=== PATIENT | female | born 1935 | race Caucasian/White ===

== ENCOUNTER → 2017-05-01 | Outpatient (CLI) | payer MEDICARE, BC ==
[~2017-05-01] MED LIST: CALCIUM 600 MG1 EAC4; GABAPENTIN600 MG; LEVOTHYROXINE; TRAMADOL HCL50 M1 PO; Z.0.CENTRUM SILVER1 PO; Z.0.MOBIC15 MG PO; [UNRECOGNIZED DRUG - CODE] PO; [UNRECOGNIZED DRUG - OTHER] PO
--- NOTE | 2017-05-01 11:12 | Diagnostic Imaging Report ---
PROCEDURE:BONE DXA DUAL ENERGY INDICATION: Post menopausal osteoporosis screening The patient history questionnaire was completed and is available on PACS. COMPARISON:None. FINDINGS: Evaluation of the left hip and lumbar spine was performed utilizing DEXA Hologic bone densitometer. The study is technically adequate. The patient's fracture risk is compared to an age-matched control. The patient denies prior surgery/fracture of the spine, hips or forearm. Left femoral neck bone mineral density: 0.761 g/cm2, T-score is -0.8, Z-score is 1.6. Left total hip bone mineral density: 0.744 g/cm2, T-score is -1.6, Z-score is 0.5. Lumbar spine total bone mineral density: 1.257 g/cm2, T-score is 1.9, Z-score is 4.7. IMPRESSION: 1. Bone mineralization by WHO Classification is osteopenia, based on measurements obtained of the left hip. The fracture risk isn't increased. 2. Measured bone mineral density of the lumbar spine is probably artifactually increased due to degenerative osteophyte formation. Dictated by: Cedric López M.D. on 05/01/2017 at 11:11 Electronically approved by: Cedric López M.D. on 05/01/2017 at 11:11
== END ==
LOC: DX 09:38
PROVIDERS: ATTEND Family Medicine
DX: M81.0 Age-related osteoporosis without current pathological fracture (principal)
CPT/HCPCS: 77080

== ENCOUNTER 2018-04-01 23:47 | Inpatient (IN) | payer MEDICARE, BC ==
[~2018-04-01] VITALS: Ht 172.7 cm; Wt 65.8 kg
--- OUTSIDE RECORDS SUMMARY | 2018-04-01 23:51 | XMS REPORT ---
Author Author [facility] Address Unknown Phone Unavailable Care Team Providers Care Group Exercise Manager Name Role Phone SOHA GARCIA Unavailable Unavailable Problems This patient has no known problems. Allergies, Adverse Reactions, Alerts This patient has no known allergies or adverse reactions. Medications This patient has no known medications. Results Test Description Test Time Test Comments Text Results Atomic Results Result Comments BONE DXA DUAL ENERGY [place] [id number] Patient Name: JI ALLEN MR #: [id number] : 1935 Age/Sex: 81/F Req #: [id number] [facility] Physician: Ordered by: SOHA GARCIA MD Report #: [id number] Location: DX Room/Bed: Procedure: [id number] DX/BONE DXA DUAL ENERGY Exam Date: Exam Time: REPORT STATUS: Signed PROCEDURE: BONE DXA DUAL ENERGY INDICATION: Post menopausal osteoporosis screening The patient history questionnaire was completed and is available on PACS. COMPARISON: None. FINDINGS: Evaluation of the left hip and lumbar spine was performed utilizing DEXA Hologic bone densitometer. The study is technically adequate. The patient's fracture risk is compared to an age- matched control. The patient denies prior surgery/fracture of the spine, hips or forearm. Left femoral neck bone mineral density: 0.761 g/cm2, T-score is -0.8, Z-score is 1.6. Left total hip bone mineral density: 0.744 g/cm2, T-score is -1.6, Z-score is 0.5. Lumbar spine total bone mineral density: 1.257 g/cm2, T-score is 1.9, Z-score is 4.7. IMPRESSION: 1. Bone mineralization by WHO Classification is osteopenia, based on measurements obtained of the left hip. The fracture risk isn't increased. 2. Measured bone mineral density of the lumbar spine is probably artifactually increased due to degenerative osteophyte formation. Dictated by: Delfino Johnson M.D. on 05/01/2017 at 11:11 Electronically approved by: Delfino Johnson M.D. on 05/01/2017 at 11:11 Dictated By: DELFINO JOHNSON MD 1111 Transcribed By: RAFAELA on 05/01/17 1111 COPY TO: SOHA GARCIA MD
[2018-04-01] MEDS ORDERED: ONDANSETRON HCL INJ 2MG/ML 2ML 2 MG/ML VIAL IV STA (23:56)
[2018-04-01] MEDS ORDERED: HYDROMORPHONE 2MG/ML 2 MG/ML ML IV STA (23:56)
[2018-04-02 00:51] LABS: ALBUMIN 3.3 g/dL (3.5-5.0); ANION GAP 14.9 mmol/L (8-16); CALCIUM 9.1 mg/dL (8.4-10.2); CREATININE, SERUM 1.05 mg/dL (0.57-1.11); POTASSIUM 3.9 mmol/L (3.5-5.1)
[2018-04-02 00:52] LABS: BASOPHILS # (AUTO) 0.1 (0.0-0.1); BASOPHILS % 0.8 % (0.0-1.0); EOSINOPHILS # (AUTO) 0.6 (0.0-0.4); EOSINOPHILS % 8.5 % (0.0-6.0); HEMATOCRIT 33.4 % (34.2-44.1); LYMPHOCYTES # (AUTO) 1.8 (1.0-3.2); LYMPHOCYTES % 27.8 % (18.0-39.1); MEAN CORPUSCULAR HEMOGLOBIN 32.8 pg (28-32); MEAN CORPUSCULAR HGB CONC 35.9 g/dL (31-35); MEAN CORPUSCULAR VOLUME 91.3 fL (81-99); MONOCYTES # (AUTO) 0.6 (0.2-0.8); MONOCYTES % 9.4 % (4.4-11.3); NEUTROPHILS # (AUTO) 3.5 (2.1-6.9); PLATELET COUNT 242 x10e3/uL (140-360); RED BLOOD COUNT 3.66 x10e6/uL (3.6-5.1); RED CELL DISTRIBUTION WIDTH 13.9 % (11.7-14.4)
[2018-04-02 01:18] LABS: INR 1.01; PROTHROMBIN TIME 14.2 seconds (11.9-14.5)
[2018-04-02 01:19] LABS: PARTIAL THROMBOPLASTIN TIME 33.7 seconds (23.8-35.5)
--- NOTE | 2018-04-02 01:30 | Diagnostic Imaging Report ---
EXAM: HIP LEFT 2-3 VW (+/- PELVIS) INDICATION: Fall, left hip pain COMPARISON: None FINDINGS: BONES: Acute fracture of the left proximal femoral neck with shortening. JOINTS: No dislocation. Degenerative changes of the bilateral hips and pubic symphysis and sacroiliac joints and lower lumbar spine. SOFT TISSUES: Normal IMPRESSION: Acute fracture of the left proximal femoral neck. Signed by: Dr. Jolene Mahajan M.D. on 04/02/2018 1:26 AM
--- NOTE | 2018-04-02 01:31 | Diagnostic Imaging Report ---
EXAM: CHEST SINGLE (PORTABLE), AP 1 view INDICATION: Fall, left hip pain COMPARISON: None FINDINGS: LINES/TUBES: None LUNGS: No consolidations or edema. PLEURA: No effusions or pneumothorax. HEART AND MEDIASTINUM: The heart is within normal size limits. Prominence of the right paratracheal stripe is likely secondary to rotation. BONES AND SOFT TISSUES: No acute findings. IMPRESSION: No acute thoracic abnormality. Signed by: Dr. Jolene Mahajan M.D. on 04/02/2018 1:27 AM
[2018-04-02] MEDS ORDERED: HYDROMORPHONE 2MG/ML 2 MG/ML ML IV STA (01:35)
[2018-04-02] MEDS ORDERED: SODIUM CHLORIDE 0.9% 1000ML 1,000 ML IV SCH (01:55)
[2018-04-02] MEDS ORDERED: HYDRALAZINE HCL 20 MG/ML VIAL IV PRN (02:00)
--- NOTE | 2018-04-02 02:36 | Diagnostic Imaging Report ---
Exam: Left femur one view Indication: Fall, left hip pain Comparison: Pelvic and left hip x-rays April 02, 2018 Impression: Acute fracture of the left proximal femoral neck with shortening. No additional femoral fractures. No dislocation. Signed by: Dr. Jolene Mahajan M.D. on 04/02/2018 2:33 AM
[2018-04-02 03:26] LABS: CLARITY,URINE CLEAR (CLEAR); COLOR,URINE YELLOW (YELLOW); LEUKOCYTE ESTERASE ,URINE NEGATIVE (NEGATIVE); NITRITE,URINE NEGATIVE (NEGATIVE)
[2018-04-02 03:27] LABS: BACTERIA,URINE RARE /HPF; BILIRUBIN,URINE NEGATIVE (NEGATIVE); EPITHELIAL CELLS,URINE FEW /LPF; KETONES,URINE TRACE (NEGATIVE); MUCUS,URINE FEW (RARE); PROTEIN,URINE DIPSTICK NEGATIVE (NEGATIVE); RBC,URINE 0-5 /HPF (0-5); URINE UROBILINOGEN 0.2 mg/dL (0.2 - 1); WBC,URINE (MAN) 0-5 /HPF (0-5)
--- NOTE | 2018-04-02 04:00 | NUR ---
THIS NURSE ATTEMPTED TO PLACE PATIENT ON HOSPITAL BED, FAMILY IN ROOM SAID THE PATIENT IS RESTING PEACFULLY AND THEY WILL LET US KNOW WHEN THEY ARE READY. EXPLAINED THE RISK OF SKIN BREAKDOWN. PATIENT WAS ASKED IF SHE WANTED TO STAY IN ER BED, PATIENT STATED SHE DID NOT WANT TO BE MOVED TO HOSPITAL BED UNTIL LATER.
[2018-04-02] MEDS: HYDROMORPHONE 2MG/ML 2 MG/ML ML IV PRN ×4 (06:30→19:50)
[2018-04-02] MEDS ORDERED: SYNTHROID50 MCG PO (06:35)
--- NOTE | 2018-04-02 07:38 | NUR ---
UNABLE TO INITIATE SCD/VTE PROPHYLAXIS, NO MACHINE AVAILABLE
--- NOTE | 2018-04-02 08:36 | NUR ---
BLE KNEE HIGH SCD'S INITIATED
--- NOTE | 2018-04-02 08:40 | NUR ---
PT REPOSITIONED FOR COMFORT, PROVIDED PILLOW TO WEDGE LEFT HIP OFF BED.
--- NOTE | 2018-04-02 09:56 | NUR ---
PT TRANSFERRED FROM STRETCHER TO HOSPITAL BED. PT TOLERATED WITHOUT DIFFICULTY.
[2018-04-02] MEDS ORDERED: ENOXAPARIN 30 MG/0.3 ML SYR SC ONE (10:30)
--- NOTE | 2018-04-02 10:32 | History and Physical ---
CHIEF COMPLAINT: "I fell down." HISTORY OF PRESENT ILLNESS: This is an 82-year-old white woman who presents to [facility] with complaints of intense left hip pain. The patient states she suffered a mechanical fall last night at approximately 11 p.m. when she went outside to see the [employer]. The patient denies any syncopal or presyncopal symptoms prior to falling. The patient states she has intense pain of the left hip in the left hip area. In the emergency room, the patient had a left femur x-ray performed that revealed an acute fracture of the left proximal femoral neck with shortening. The patient's complete blood count and comprehensive metabolic profile were unremarkable. The patient was admitted for further evaluation and treatment. REVIEW OF SYSTEMS GENERAL: Weight has been stable. No fever or chills. HEENT: No headaches. No visual changes. CARDIOVASCULAR/RESPIRATORY: The patient was recently diagnosed with pneumonia, but her cough and congestion has improved significantly. The patient denies any chest pain or tiredness. GI: No nausea, vomiting, constipation. : No dysuria. No hematuria. No constipation. NEUROMUSCULAR: Complains of left hip pain. PAST MEDICAL HISTORY 1. Hypothyroidism. 2. Osteoporosis. 3. Hypertensive heart disease. 4. Stage 1 chronic kidney disease. 5. Generalized osteoarthritis. SURGICAL HISTORY 1. Appendectomy. 2. Tonsillectomy. 3. Right ankle surgery. 4. Right knee arthroscopy. 5. Cataract surgery. 6. Left heart catheterization, but no percutaneous coronary intervention performed. FAMILY HISTORY: Both parents have hypertension and mother had coronary artery bypass grafting. ALLERGIES: NO KNOWN DRUG ALLERGIES. SOCIAL HISTORY: The woman is and lives with her . She was exposed to second-hand tobacco smoke from her up until 1979. She is retired. She denies any alcohol use. MEDICATIONS 1. Meloxicam 15 mg daily. 2. Levothyroxine 50 mcg daily. 3. Tramadol 50 mg q.i.d. p.r.n. pain. 4. Alendronate 70 mg daily. 5. Gabapentin 600 mg daily. 6. Losartan 40 mg daily. 7. Vitamin D3 2000 units daily. 8. Calcium with vitamin D t.i.d. 9. Multivitamin 1 daily. PHYSICAL EXAMINATION GENERAL: She is awake, alert, fully awake, and pleasant on exam. VITALS: Height is 5 feet 8 inches, weight is 130 pounds, BMI 19, blood pressure is 128/62, heart rate is 100, respiratory rate is 18, oxygen saturation 98% on room air, temp 97.8. INTEGUMENT: Skin is warm and dry. No pallor, conjunctivitis or diaphoresis. HEENT: Anicteric. Moist mucous membranes. NECK: Supple. CARDIOVASCULAR: Tachycardic rate with regular rhythm. The patient has an S3 and S4 gallops. LUNGS: She has coarse breath sounds bilaterally, but no rales, rhonchi or wheezes appreciated. EXTREMITIES: The patient's left lower extremity is shorter than the right and it is externally rotated. NEUROLOGIC: Intact. IMPRESSION 1. Left proximal femoral neck fracture secondary to mechanical fall. 2. Hypertensive heart disease. 3. Stage 1 chronic kidney disease. 4. Osteoporosis. 5. Generalized osteoarthritis. PLAN 1. Will order enoxaparin to prevent deep venous thrombosis. 2. Regular diet. 3. N.p.o. after midnight. 4. I spoke with orthopedic surgery, and she will tentatively undergo left hip surgery tomorrow on Tuesday, April 03, 2018. 5. Pain control. 6. Renew home medications. I spent an hour in the care of this patient. Job#: [id number] SUSI BHAGAT
[2018-04-02] MEDS: GABAPENTIN 300 MG CAP PO SCH ×3 (10:48→21:15)
--- NOTE | 2018-04-02 11:50 | NUR ---
DR. BARTLETT AT BEDSIDE
[2018-04-02] MEDS: ONDANSETRON HCL INJ 2MG/ML 2ML 2 MG/ML VIAL IV PRN (12:25)
--- NOTE | 2018-04-02 13:02 | Consultation ---
DATE OF CONSULTATION: April 02, 2018 CARDIOLOGY CONSULTATION ATTENDING PHYSICIAN: Dr. Mayo. Thank you so much for asking me to see this nice lady again in consultation. Ms. Arevalo is a charming 82-year-old woman seen in my office earlier this month, who presented to the emergency room overnight after falling down on her patio and fracturing her left hip. HISTORY OF PRESENT ILLNESS: The patient reports she went out to see the [place] and was having trouble seeing it but slipped down on a rubber mat and fractured her left hip. She denies any palpitations or any syncope. PAST MEDICAL HISTORY: Significant for hypertension. She had a cardiac catheterization in 2009, found to have only minimal coronary disease. She has had previous left trigeminal neuralgia. SURGICAL HISTORY: Remote tonsillectomy and appendectomy. HOME MEDICATIONS: Have been Synthroid 50 mcg daily, calcium, vitamin D, tramadol, meloxicam, gabapentin 600 mg t.i.d., and Micardis 40 mg daily. PERSONAL AND SOCIAL HISTORY: She does not smoke nor drink. PHYSICAL EXAMINATION GENERAL: At this time shows a pleasant, elderly woman, alert, responsive, oriented, normotensive. HEAD, EYES, EARS, NOSE AND THROAT: Unremarkable. NECK: No jugular venous distention. THORAX: Heart sounds S1 and S2 are equal, no murmurs. LUNGS: Clear. ABDOMEN: Scaphoid. Normal bowel sounds. EXTREMITIES: Have no cyanosis, clubbing or edema. EKG shows sinus tachycardia. INITIAL LABORATORY STUDIES: Were unrevealing with a creatinine of 1.0. INR 1.0. ASSESSMENTS 1. Left femoral neck fracture. 2. Hypertension, controlled. 3. No significant coronary disease. PLAN: I believe she is a standard risk for a hip repair for an 82-year-old. Will continue home medications and follow with you. Thank you for asking me to see her in consultation. Job#: [id number] EV cc:MD DR. HENRY ARAUZ
--- NOTE | 2018-04-02 14:36 | NUR ---
PT TO THE FLOOR FROM ER. PT'S FAMILY AT BEDSIDE.
[2018-04-02 15:00] VITALS: BP 132/66
--- NOTE | 2018-04-02 16:04 | NUR ---
CONSULTATION - ORTHOPEDICS Abigail is a 82 year old community ambulating female without assistive device who presented to the ED after a mechanical fall with complaint of left hip pain and an inability to ambulate. Beside her general soreness, she denies pain in any other extremity and denies numbness, paresthesias or loss of distal motor function. Pain mainly localized to left hip. PMdHx: Hypothyroidism, Osteoporosis, Hypertensive heart disease, Stage 1 chronic kidney disease, Generalized osteoarthritis. SurgHx: Appendectomy, Tonsillectomy, Right ankle surgery, Right knee arthroscopy, Cataract surgery, Left heart catheterization FamHx: Non-contributory Allergies: NKDA. SocHx: Retired, Denies Tobacco, Alcohol and Drug Use Medications: See Med Reconciliation VS: T 97.9, HR 98, RR 16, BP 136/75, O2 Sat 98% (2.0L) Alert, Awake & Oriented, NAD Bilateral Upper Extremity No open lesions or sores, no gross deformity + AROM of digits, wrist, elbow, shoulder Motor: + AIN, PIN, Radial, Median, Ulnar Sensation grossly intact Pulses + Radial, + capillary refill Compartments soft Lower Extremity Right Lower Extremity: No pain with log roll, heal strike, no gross deformity Left Lower Extremity: Shortened, flexed, externally rotated Motor: + EHL, FHL, TA, G/S Sensation grossly intact Pulses + DP, Post tib Compartments soft Negative calf tenderness Xrays demonstrate displaced left femoral neck fracture 82 year old female with displaced left femoral neck fracture Plan for OR in am for left hip hemiarthroplasty Analgesics PRN DVT Prophylaxis Bedrest NPO except meds after midnight Hold anticoagulation after midnight IVF while NPO Medical and Cardiology notes appreciated. DO [facility]
[2018-04-02 16:25] VITALS: BP 113/57
[2018-04-02] MEDS: LACTATED RINGER'S 1,000 ML IV SCH (17:12)
[2018-04-02 20:00] VITALS: BP 103/58
[2018-04-03] VITALS (7 sets, daily range): BP systolic 96–138; BP diastolic 55–74
[2018-04-03] MEDS: HYDROMORPHONE 2MG/ML 2 MG/ML ML IV PRN ×2 (00:07→05:20)
--- NOTE | 2018-04-03 00:13 | NUR ---
RECHECKED TEMP NOW READING 97.7
--- NOTE | 2018-04-03 00:15 | NUR ---
KYLIE CHAN REGARDING PT TEMP READING 101.0. AWAITING CALL BACK. Addendum: 04/03/18 at 0528 by David Forte RN COLD COMPRESS APPLIED TO FOREHEAD.
--- NOTE | 2018-04-03 00:38 | NUR ---
RE-PAGED DR. CHAN AT THIS TIME. AWAITING CALL BACK.
[2018-04-03] MEDS: LEVOTHYROXINE SODIUM 50 MCG TAB PO SCH (04:52)
--- NOTE | 2018-04-03 05:11 | NUR ---
SPOKE TO DR. CHAN AT THIS TIME. NEW ORDER RCV FOR PRN IV TYLENOL.
[2018-04-03] MEDS: LACTATED RINGER'S 1,000 ML IV SCH (06:00)
[2018-04-03] MEDS: ACETAMINOPHEN 1000 MG/100 ML IV PRN (06:00)
[2018-04-03 06:16] LABS: BASOPHILS # (AUTO) 0.1 (0.0-0.1); BASOPHILS % 0.7 % (0.0-1.0); EOSINOPHILS # (AUTO) 0.7 (0.0-0.4); EOSINOPHILS % 9.1 % (0.0-6.0); HEMATOCRIT 33.7 % (34.2-44.1); HEMOGLOBIN 11.1 g/dL (12.0-16.0); LYMPHOCYTES # (AUTO) 1.3 (1.0-3.2); LYMPHOCYTES % 16.1 % (18.0-39.1); MEAN CORPUSCULAR HEMOGLOBIN 30.2 pg (28-32); MEAN CORPUSCULAR HGB CONC 32.9 g/dL (31-35); MEAN CORPUSCULAR VOLUME 91.6 fL (81-99); MONOCYTES # (AUTO) 0.8 (0.2-0.8); MONOCYTES % 9.2 % (4.4-11.3); NEUTROPHILS # (AUTO) 5.2 (2.1-6.9); NEUTROPHILS % 64.4 % (38.7-80.0); PLATELET COUNT 219 x10e3/uL (140-360); RED BLOOD COUNT 3.68 x10e6/uL (3.6-5.1); RED CELL DISTRIBUTION WIDTH 14.1 % (11.7-14.4)
[2018-04-03 06:32] LABS: ALANINE AMINOTRANSFERASE 13 IU/L (0-55); ALBUMIN 2.5 g/dL (3.5-5.0); ALBUMIN/GLOBULIN RATIO 0.9 (0.8-2.0); ALKALINE PHOSPHATASE 43 IU/L (40-150); BLOOD UREA NITROGEN 13 mg/dL (7-26); BUN/CREATININE RATIO 17 (6-25); CALCIUM 8.3 mg/dL (8.4-10.2); CARBON DIOXIDE 28 mmol/L (22-29); CHLORIDE 100 mmol/L (98-107); CREATININE, SERUM 0.78 mg/dL (0.57-1.11); EST GLOMERULAR FILTRATION RATE > 60 ML/MIN (60-); GLUCOSE 107 mg/dL (74-118); SODIUM 134 mmol/L (136-145)
[2018-04-03] MEDS ORDERED: VANCOMYCIN HCL 1 GM VIAL ONE (06:43)
[2018-04-03] MEDS ORDERED: BACITRACIN 50,000 UNIT VIAL ONE (06:44)
[2018-04-03] MEDS ORDERED: TRANEXAMIC ACID 1,000 MG/10 ML ML ONE (06:44)
--- NOTE | 2018-04-03 07:00 | NUR ---
SHIFT REPORT RECEIVED FROM APPLICATIONS ENGINEERING MANAGER RN WHILE ROUNDING. PT DENIES NEEDS AT THIS TIME.
--- NOTE | 2018-04-03 07:14 | NUR ---
Patient going to surgery at this time. Daughter at bedside
--- NOTE | 2018-04-03 07:15 | NUR ---
PT OFF THE FLOOR TO OR. RN STATED CONSENT WOULD BE DONE IN OR. WHEN OR CALLED TO CHECK ON PT'S READINESS, THIS NURSE LET THEM KNOW PT WAS READY WITH THE EXCEPTION OF CONSENT. THERE WAS NO ORDER. THEY STATED THAT WOULD BE CALLED FOR ORDER.
[2018-04-03] MEDS ORDERED: ROPIVACAINE 246.25 MG, EPINEPHRINE HCL 1:1000 1ML 0.5 MG, CLONIDINE HCL 0.08 MG, KETORO... INJ ONE ×5 (07:30)
[2018-04-03] MEDS: GABAPENTIN 300 MG CAP PO SCH ×3 (08:12→21:55)
[2018-04-03] MEDS: TELMISARTAN 40 MG TAB PO SCH (08:12)
[2018-04-03] MEDS: CHOLECALCIFEROL 1,000 UNIT TAB PO SCH (08:12)
--- NOTE | 2018-04-03 09:59 | NUR ---
OPERATIVE NOTE - ORTHOPEDICS PREOPERATIVE DIAGNOSES: Left Displaced Femoral Neck Fracture POSTOPERATIVE DIAGNOSES: Left Displaced Femoral Neck Fracture and Complete Abductor Tendon Tear PROCEDURE: LeftHip Hemiarthroplasty and Abductor Tendon Repair SURGEON: Susan Edmondson DO ARABIC TEACHER: Elie Fuentes ANESTHESIA: General. EBL: 100cc ANESTHESIA: General COMPLICATIONS: None IMPLANTS: [place] Accolade II 132 Neck Angle Hip Stem Size #4, 35mm Neck length, 105 mm Stem Length & V40 Taper Betty UHR [place] Head Bipolar Component OD 47 mm, ID 28 mm Styker LFIT V40 Femoral Head OD 28 mm, Offset 0 mm PROCEDURE:The patient was bought to the operating room and placedunder general anesthesia and Ancef antibiotics and TXA were provided. After induction of anesthesia, the patient was turned on therightside and secured in the hip table with all bony prominences well padded. The leg was prepped and draped in standard sterile fashion. A timeout was performed confirming patient and laterality. An incision was made, centered over theposterior portion ofgreater trochanter. Dissection was sharply carried down through the subcutaneous tissues with controlled hemostasis. The gluteus maximusand fascia latawas incised and split proximally and distally. There was a significant bursitis with a large expression of bursal fluid. Under the bursa there was a large complete hip abductor tear with significant scarring of the lateral and posterior trochanteric structures. The piriformis and external rotators were identified. These were removed from their insertions on the greater trochanterand tagged with stitchesas a sleeve. A T-capsulotomy was performed for exposure to the fractured femoral neck and head. The distal portion of the capsule and external rotators were reflected to protect the sciatic nerve. A femoral neck cut was made above the lesser trochanter and the femoral neck and head were removed. The femoral head was measured to be a 50 mm.All bony remnants within the acetabulum and parts of the capsule were removed and focus was on preparation of the femur. The femur was then flexed and internally rotated. The extra trochanteric bone was removed, as was any leftover lateral soft tissue at the piriformis insertion. An intramedullary hole was drilled into the femur to define the canal. Reaming was performed until the appropriate size was reached. The broaches were then used to prepare the femur with the appropriate amount of version. Once the appropriate size broach was reached, it was used as a trial with head and neck placement. Hip [id number] was checked in all planes, including flexion-internal rotation, the position of sleep, and extension-external rotation. The hip was found to have excellent stability with the final chosen head-neck combination. Intraoperative x-rays were obtained to ensure adequate canal filling and leg lengths. Xray were interpreted and showed good alignment, length and size. Leg length measurements were taken and found to be within acceptable range, given the necessity for stability. The canal was thoroughly washed and a Betty Accolade II #4 size neck length 35mm, stem lenght 105mm V40 Taper with 132 degree degreestem was opened and impactedin the appropriate version. The UHR [place] Head Bipolar Component 47 mm 28 mm with the Styker LFit V40 Femoral Head with 28 mm and 0 mm Offset was used.Range of motion and stability were once again checked and found to be excellent. Adequate hemostasis was obtained. Vigorous power irrigation was used to remove all debris from the joint prior to final reduction. The arthrotomy and rotators were closed using Ethibond through drill holes in the bone, recreating the posterior hip structural anatomy. The gluteus medius and minimus were repaired by lightly decorticating lateral portion of the greater trochanter and placing fiber wire in a margin convergence pattern and then placing additional stitches through a 4.75 Arthrex Swivel lock. The gluteus nohemy was repaired using Vicryl. The subcutaneous tissues were closed after further irrigation with 2-0 Vicryl and Monocryl sutures.An analgesic cocktail was injected into the area for pain control.The skincovered with steristrips and an Aquacel dressing.Final Xrays were obtained in the operating room and interpreted by me demonstrating adequate size, length and position of the final implant. The patient was transferred to the recovery room in stable condition, having tolerated the procedure well. DO [facility]
--- NOTE | 2018-04-03 10:32 | Diagnostic Imaging Report ---
EXAM: HIP LEFT ONE VIEW / OR INDICATION: Intraoperative radiograph for hardware placement. COMPARISON: Left hip radiographs 04/01/2018. FINDINGS: Intraoperative portable radiograph, which limits evaluation. There has been interval resection of the proximal left femur with placement of a left femoral stem prosthesis. The femoral head component has not yet been placed. Hardware appears intact with unremarkable alignment. There is overlying subcutaneous gas consistent with recent surgery. Overlying lines. The right hip is partially obscured and demonstrates degenerative changes. There is diffuse osteopenia. Overlying wires and Ascencio catheter are present. IMPRESSION: Post surgical changes of the left femur as above. Signed by: Dr. Chino Gonzalez MD on 04/03/2018 10:28 AM
--- NOTE | 2018-04-03 10:33 | Diagnostic Imaging Report ---
EXAM: HIP LEFT ONE VIEW / OR INDICATION: X-ray for surgical evaluation status post left hip arthroplasty. COMPARISON: Intraoperative left hip radiographs 04/03/2018. Left hip presurgical radiographs 04/01/2018. FINDINGS: Intraoperative portable radiograph. Status post left total hip arthroplasty with intact hardware and unremarkable alignment. No evidence of interval fracture. There is overlying subcutaneous gas consistent with recent surgery. Mild degenerative changes of the right hip. Diffuse osteopenia. Bowel gas partially obscures visualization of the sacrum and left hemipelvis. IMPRESSION: Post surgical changes status post left total hip arthroplasty as above. Signed by: Dr. Chino Gonzalez MD on 04/03/2018 10:30 AM
--- NOTE | 2018-04-03 10:45 | NUR ---
PT BACK TO THE FLOOR FROM PACU. FAMILY AT BEDSIDE. PT DENIES NEEDS AT THIS TIME.
[2018-04-03 10:48] LABS: BASOPHILS # (AUTO) 0.1 (0.0-0.1); BASOPHILS % 0.4 % (0.0-1.0); EOSINOPHILS # (AUTO) 0.3 (0.0-0.4); EOSINOPHILS % 2.2 % (0.0-6.0); HEMATOCRIT 35.6 % (34.2-44.1); HEMOGLOBIN 11.8 g/dL (12.0-16.0); LYMPHOCYTES # (AUTO) 1.7 (1.0-3.2); LYMPHOCYTES % 12.9 % (18.0-39.1); MEAN CORPUSCULAR HEMOGLOBIN 30.8 pg (28-32); MEAN CORPUSCULAR HGB CONC 33.1 g/dL (31-35); MONOCYTES # (AUTO) 0.5 (0.2-0.8); NEUTROPHILS # (AUTO) 10.5 (2.1-6.9); NEUTROPHILS % 79.8 % (38.7-80.0); PLATELET COUNT 210 x10e3/uL (140-360); RED BLOOD COUNT 3.83 x10e6/uL (3.6-5.1); RED CELL DISTRIBUTION WIDTH 14.1 % (11.7-14.4)
[2018-04-03 11:09] LABS: ALANINE AMINOTRANSFERASE 14 IU/L (0-55); ALBUMIN 2.6 g/dL (3.5-5.0); ALBUMIN/GLOBULIN RATIO 0.8 (0.8-2.0); ALKALINE PHOSPHATASE 46 IU/L (40-150); ANION GAP 11.2 mmol/L (8-16); BLOOD UREA NITROGEN 13 mg/dL (7-26); BUN/CREATININE RATIO 16 (6-25); CALCIUM 8.3 mg/dL (8.4-10.2); CARBON DIOXIDE 27 mmol/L (22-29); CHLORIDE 99 mmol/L (98-107); CREATININE, SERUM 0.81 mg/dL (0.57-1.11); EST GLOMERULAR FILTRATION RATE > 60 ML/MIN (60-); GLUCOSE 114 mg/dL (74-118); POTASSIUM 4.2 mmol/L (3.5-5.1); SODIUM 133 mmol/L (136-145)
[2018-04-03] MEDS ORDERED: CEFAZOLIN SOD 1 GM VIAL IV SCH (12:00)
[2018-04-03] MEDS: CEFAZOLIN SOD 2 GM/D5W 50ML 50 ML IV SCH ×2 (14:48→21:55)
--- NOTE | 2018-04-03 15:05 | NUR ---
Visit made by the Spiritual Care Department Pastoral Visitor, May Mendoza. Pt sleeping soundly and pt's family at bedside. PV provided pastoral presence, hospitality, and supportive listening. Pastoral Visitor informed family of the scope of Actuarial Manager Services and availability. ISADORA LINDO [facility] Spiritual Care Department O: [phone] Pager: [phone] ([phone] number calling from)
--- NOTE | 2018-04-03 15:22 | NUR ---
PROGRESS NOTE - ORTHOPEDIC POST OP CHECK Patient seen & examined while in recovery room. Pain controlled AVSS Left Hip - Dressing clean, dry and intact Motor: EHL, FHL, TA, G/S Sensation grossly intact Pulses + DP, Post tib Compartments soft Negative calf tenderness H/H 11.8/35.6 82 year old F s/p Left Hip Hemiarthroplasty POD#0 Analgesics PRN Start Lovenox tomorrow Follow up am labs PT - WBAT, with posterior hip precautions DO [facility]
[2018-04-03] MEDS ORDERED: ROCURONIUM BROMIDE 10 MG/ML 5ML VIAL ONE (17:27)
[2018-04-03] MEDS ORDERED: CEFAZOLIN SOD 1 GM VIAL ONE (17:27)
[2018-04-03] MEDS ORDERED: SEVOFLURANE INHAL SOLN 250 ML PEN BTL ONE (17:27)
[2018-04-03] MEDS ORDERED: PROPOFOL IV EMULSION 10 MG/ML 20 ML VIAL ONE (17:27)
[2018-04-03] MEDS ORDERED: LIDOCAINE HCL 2% LOCAL INJ 5 ML SDV VIAL INJ ONE (17:27)
[2018-04-03] MEDS ORDERED: ACETAMINOPHEN 1000 MG/100 ML IV ONE (17:27)
[2018-04-03] MEDS ORDERED: DEXAMETHASONE SOD PHOS INJ 4 MG/ML VIAL ONE (17:27)
[2018-04-03] MEDS ORDERED: ONDANSETRON HCL INJ 2MG/ML 2ML 2 MG/ML VIAL ONE (17:27)
[2018-04-03] MEDS ORDERED: EPHEDRINE SULFATE INJ 50 MG/10 ML SYR ONE (17:27)
[2018-04-03] MEDS ORDERED: PHENYLEPHRINE HCL 1% 10 MG/ML VIAL ONE (17:27)
[2018-04-03] MEDS ORDERED: FENTANYL CITRATE/PF 100MCG/2 ML INJ ONE (18:08)
[2018-04-04] VITALS (8 sets, daily range): BP systolic 106–132; BP diastolic 59–80
[2018-04-04] MEDS: ACETAMINOPHEN 1000 MG/100 ML IV PRN (04:14)
[2018-04-04] MEDS: CEFAZOLIN SOD 2 GM/D5W 50ML 50 ML IV SCH (05:54)
[2018-04-04] MEDS: LEVOTHYROXINE SODIUM 50 MCG TAB PO SCH (05:54)
[2018-04-04 06:13] LABS: BASOPHILS % 0.3 % (0.0-1.0); EOSINOPHILS # (AUTO) 0.1 (0.0-0.4); HEMATOCRIT 31.5 % (34.2-44.1); HEMOGLOBIN 10.6 g/dL (12.0-16.0); LYMPHOCYTES # (AUTO) 1.4 (1.0-3.2); LYMPHOCYTES % 11.9 % (18.0-39.1); MEAN CORPUSCULAR HEMOGLOBIN 30.5 pg (28-32); MEAN CORPUSCULAR HGB CONC 33.7 g/dL (31-35); MEAN CORPUSCULAR VOLUME 90.8 fL (81-99); MONOCYTES # (AUTO) 0.9 (0.2-0.8); MONOCYTES % 7.9 % (4.4-11.3); NEUTROPHILS % 78.6 % (38.7-80.0); PLATELET COUNT 229 x10e3/uL (140-360); RED BLOOD COUNT 3.47 x10e6/uL (3.6-5.1); RED CELL DISTRIBUTION WIDTH 14.2 % (11.7-14.4)
--- NOTE | 2018-04-04 06:14 | Diagnostic Imaging Report ---
EXAMINATION: CHEST SINGLE (PORTABLE) INDICATION: increased fever, and post surgery COMPARISON: 04/02/2018 FINDINGS: AP view TUBES and LINES: None. LUNGS: Lungs are well inflated. Mild bibasilar atelectasis. There is no evidence of pneumonia or pulmonary edema. PLEURA: No pleural effusion or pneumothorax. HEART AND MEDIASTINUM: The cardiomediastinal silhouette is unremarkable. BONES AND SOFT TISSUES: No acute osseous lesion. Soft tissues are unremarkable. UPPER ABDOMEN: No free air under the diaphragm. IMPRESSION: No acute thoracic abnormality. Signed by: DR. Martin Salmon MD on 04/04/2018 6:11 AM
[2018-04-04 06:34] LABS: ALANINE AMINOTRANSFERASE 9 IU/L (0-55); ALBUMIN 2.3 g/dL (3.5-5.0); ALBUMIN/GLOBULIN RATIO 0.8 (0.8-2.0); ALKALINE PHOSPHATASE 46 IU/L (40-150); ANION GAP 11.2 mmol/L (8-16); BLOOD UREA NITROGEN 18 mg/dL (7-26); BUN/CREATININE RATIO 21 (6-25); CALCIUM 8.6 mg/dL (8.4-10.2); CARBON DIOXIDE 28 mmol/L (22-29); CHLORIDE 102 mmol/L (98-107); CREATININE, SERUM 0.84 mg/dL (0.57-1.11); EST GLOMERULAR FILTRATION RATE > 60 ML/MIN (60-); GLUCOSE 112 mg/dL (74-118); POTASSIUM 4.2 mmol/L (3.5-5.1); SODIUM 137 mmol/L (136-145)
[2018-04-04] MEDS: HYDROMORPHONE 2MG/ML 2 MG/ML ML IV PRN (08:19)
[2018-04-04] MEDS: ONDANSETRON HCL INJ 2MG/ML 2ML 2 MG/ML VIAL IV PRN (08:19)
[2018-04-04] MEDS ORDERED: INFLUENZA VIRUS VAC SPLIT INJ 0.5 ML SYR IM SCH (09:00)
[2018-04-04] MEDS: TELMISARTAN 40 MG TAB PO SCH (09:45)
[2018-04-04] MEDS: GABAPENTIN 300 MG CAP PO SCH ×3 (09:45→20:38)
[2018-04-04] MEDS: CHOLECALCIFEROL 1,000 UNIT TAB PO SCH (09:45)
--- NOTE | 2018-04-04 09:45 | NUR ---
ASSESSMENT COMPLETE NO DISTRESS NOTED, UPDATED ON POC VOICED UNDERSTANDING, DENIES PAIN AT THIS TIME, DSG TO L HIP C/D/I, NO OTHER CO VOCIED CALL LIGHT IN REACH WILL CONTINUE TO MONITOR
--- NOTE | 2018-04-04 10:13 | NUR ---
SPOKE WITH PATIENT AND DAUGHTER ABOUT SNF REFERRAL, GAVE OPTIONS OF FACILITIES IN AREA. PT DAUGHTER STATES SHE KNOWS A PT TECH AT [facility] AND THEY SIGNED CHOICE FOR [facility]. PUT SIGNED COPY IN CHART. FAXED CLINICALS TO [phone].
[2018-04-04] MEDS: HYDROCODONE/APAP 5MG-325MG TAB PO PRN ×3 (12:42→22:37)
[2018-04-04] MEDS ORDERED: ENOXAPARIN SOD INJ 40 MG/0.4 ML SYR SC SCH (17:00)
--- NOTE | 2018-04-04 19:10 | NUR ---
Received patient awake, family members at the bedside, sanchez catheter in place. Call light within easy reach, advised to call for assistance, patient verbalized understanding, will continue to monitor
--- NOTE | 2018-04-04 21:00 | NUR ---
Assisted patient to the restroom, patient walks with a walker with standby assists
--- NOTE | 2018-04-04 21:30 | NUR ---
patient had a good BM.
--- NOTE | 2018-04-04 22:39 | NUR ---
PROGRESS NOTES - ORTHOPEDICS Patient seen & examined resting comfortably at bedside. Patient ambulated to door. Denies numbness, paresthesias or loss of distal motor function. Pain well controlled. No acute events overnight. Patient seen early afternoon with daughter by bedside. VS 98.8 HR 102 RR 16 BP 123/59 O2 94% RA Left Hip - Dressing clean, dry and intact In abduction pillow Motor: EHL, FHL, TA, G/S Sensation grossly intact Pulses + DP, Post tib Compartments soft Negative calf tenderness H/H 10.6/31.5 82 year old F s/p Left Hip Hemiarthroplasty POD #1 Analgesics PRN DVT Prophylaxis PT WBAT - Posterior hip precautions Follow up am labs DO [facility]
[2018-04-05] VITALS: BP 126/60
[2018-04-05 04:00] VITALS: BP 127/70
[2018-04-05] MEDS: HYDROCODONE/APAP 5MG-325MG TAB PO PRN ×2 (05:46→09:59)
[2018-04-05 05:56] LABS: BASOPHILS # (AUTO) 0.1 (0.0-0.1); BASOPHILS % 0.6 % (0.0-1.0); EOSINOPHILS # (AUTO) 0.3 (0.0-0.4); EOSINOPHILS % 3.6 % (0.0-6.0); HEMATOCRIT 29.5 % (34.2-44.1); HEMOGLOBIN 9.8 g/dL (12.0-16.0); LYMPHOCYTES # (AUTO) 1.9 (1.0-3.2); LYMPHOCYTES % 19.5 % (18.0-39.1); MEAN CORPUSCULAR HEMOGLOBIN 31.1 pg (28-32); MEAN CORPUSCULAR HGB CONC 33.2 g/dL (31-35); MEAN CORPUSCULAR VOLUME 93.7 fL (81-99); MONOCYTES # (AUTO) 0.8 (0.2-0.8); MONOCYTES % 8.7 % (4.4-11.3); NEUTROPHILS # (AUTO) 6.4 (2.1-6.9); NEUTROPHILS % 67.1 % (38.7-80.0); PLATELET COUNT 211 x10e3/uL (140-360); RED BLOOD COUNT 3.15 x10e6/uL (3.6-5.1); RED CELL DISTRIBUTION WIDTH 14.7 % (11.7-14.4)
--- NOTE | 2018-04-05 06:15 | NUR ---
FC removed per MD ordered. VDT [id number], patient aware
[2018-04-05 06:27] LABS: ALANINE AMINOTRANSFERASE 6 IU/L (0-55); ALBUMIN 2.1 g/dL (3.5-5.0); ALBUMIN/GLOBULIN RATIO 0.8 (0.8-2.0); ALKALINE PHOSPHATASE 45 IU/L (40-150); BLOOD UREA NITROGEN 23 mg/dL (7-26); BUN/CREATININE RATIO 30 (6-25); CALCIUM 8.2 mg/dL (8.4-10.2); CARBON DIOXIDE 28 mmol/L (22-29); CHLORIDE 107 mmol/L (98-107); CREATININE, SERUM 0.77 mg/dL (0.57-1.11); EST GLOMERULAR FILTRATION RATE > 60 ML/MIN (60-); GLUCOSE 92 mg/dL (74-118); SODIUM 142 mmol/L (136-145)
--- NOTE | 2018-04-05 06:28 | Discharge Summary ---
ADMIT DIAGNOSES 1. Left proximal femoral neck fracture secondary to mechanical fall. 2. Hypertensive heart disease. 3. Stage 1 chronic kidney disease. 4. Osteoporosis. 5. Generalized osteoarthritis. DISCHARGE DIAGNOSES 1. Status post left hip hemiarthroplasty to repair left proximal femoral neck fracture. 2. Hypertensive heart disease. 3. Acute renal failure, resolved. 4. Osteoporosis. 5. Generalized osteoarthritis. HOSPITAL COURSE: This is an 82-year-old white woman who was initially admitted to [facility] with the diagnosis of left proximal neck fracture that she sustained secondary to mechanical fall. During this hospitalization, she was found to have acute renal failure that resolved with intravenous fluids. The patient was seen by her orthopedic surgeon, namely Dr. Joss Figueroa, who performed successful left hip hemiarthroplasty, which she tolerated quite well. During this hospitalization, the patient did commence physical therapy, which she tolerated well. The patient's hospitalization was unremarkable. The decision was made to transfer the patient to a local correction facility, namely the [facility] where she could receive daily physical therapy, as well as management of her medical comorbidities. The patient's condition on discharge was stable. DISCHARGE MEDICATIONS 1. Sagamore 5 per 325 mg 1 every 6 hours p.r.n. pain, 30 prescribed. 2. Gabapentin 600 mg t.i.d. 3. Enoxaparin 30 mg subcutaneous daily for a total of 21 days. 4. Vitamin D3 2000 units daily. 5. Lisinopril 40 mg daily. 6. Levothyroxine 50 mcg daily. FOLLOWUP INSTRUCTIONS: As previously stated, the patient will transfer to a local correction facility, namely the [facility] where she will be under the care of Dr. Chung Hernandez. NAHEED CHAN MD Job#: [id number] RI cc: JOSS FIGUEROA MD [facility]
[2018-04-05] MEDS: LEVOTHYROXINE SODIUM 50 MCG TAB PO SCH (06:36)
--- NOTE | 2018-04-05 08:26 | NUR ---
PT ACCEPT[facility] [address] MIRANDA. PT SIGNED IMM FILED IN CHART WITH COPY LEFT AT BEDSIDE. FILLED OUT POST DISCHARGE FORM FILED IN CHART WITH COPY OF PASRR AND PUT ORIGINAL IN PACKET TO GO WITH PT TO [address], .
[2018-04-05 08:47] VITALS: BP 128/62
[2018-04-05 09:00] VITALS: BP 128/62
[2018-04-05] MEDS: CHOLECALCIFEROL 1,000 UNIT TAB PO SCH (09:00)
[2018-04-05] MEDS: GABAPENTIN 300 MG CAP PO SCH (09:00)
[2018-04-05] MEDS: TELMISARTAN 40 MG TAB PO SCH (09:00)
--- NOTE | 2018-04-05 09:00 | NUR ---
assessment complete no distress noted,updated on poc vocied understanding, denies pain at this time, dsg to l hip c/d/i, r ac 20g no ss of infiltration noted, no other co voiced call light in reach will continue to monitor
--- NOTE | 2018-04-05 09:42 | NUR ---
PROGRESS NOTES - ORTHOPEDICS Patient seen and examined with daughter by bedside. Pain well controlled with analgesics. Doing well. No acute events overnight. VS 99.5 HR 102 RR 16 BP 128/62 O2 94% (RA) Left Hip - Dressing clean, dry and intact Motor: + EHL, FHL, TA, G/S Sensation grossly intact Pulses: + DP, Post tib Compartments soft Negative calf tenderness H/H 9.8/29.5 82 year old F s/p Left Hip Hemiarthroplasty POD #2 Analgesics PRN DVT Prophylaxis PT - WBAT, Posterior hip precautions Orthopedically stable for discharge Recommend dressing change to Aquacel prior to discharge May remove new dressing at 1 week after dressing change and cover with dry sterile dressing Follow up in office in 2 weeks DO CHIDI [facility]
[2018-04-05] MEDS ORDERED: ONDANSETRON HCL 4 MG ORAL DISINTEGRATING TAB PO PRN (10:45)
[2018-04-05] MEDS ORDERED: INFLUENZA VIRUS VAC SPLIT INJ 0.5 ML SYR IM ONE (11:26)
--- NOTE | 2018-04-05 11:46 | NUR ---
dsg to left hip changed as per md instructions. pt tolerated well, flu vaccine given as per ordered to l deltoid, report called to [facility]el[facility] , pt going to rm [facility]
[2018-04-05] MEDS ORDERED: ENOXAPARIN SOD INJ 40 MG/0.4 ML SYR SC SCH (17:00)
[2018-04-05] MEDS ORDERED: ENOXAPARIN 30 MG/0.3 ML SYR SC SCH (17:00)
== END 2018-04-05 12:19 | DRG 470 ==
LOC: ER 23:50 → ERHOLD 04-02 02:10 → MED/SURG 04-02 14:21
PROVIDERS: ADMIT Internal Medicine; ATTEND Internal Medicine
PROC: 0SRS01Z Replacement of Left Hip Joint, Femoral Surface with Metal Synthetic Substitute, Open Approach (ICD-10-PCS; principal; 2018-04-03 07:30)
DX: S72.032A Displaced midcervical fracture of left femur, initial encounter for closed fracture (principal); N17.9 Acute kidney failure, unspecified; I13.10 Hypertensive heart and chronic kidney disease without heart failure, with stage 1 through stage 4 chronic kidney disease, or unspecified chronic kidney disease; N18.1 Chronic kidney disease, stage 1; W01.0XXA Fall on same level from slipping, tripping and stumbling without subsequent striking against object, initial encounter; Y93.01 Activity, walking, marching and hiking; Y92.018 Other place in single-family (private) house as the place of occurrence of the external cause; E03.9 Hypothyroidism, unspecified; Z82.49 Family history of ischemic heart disease and other diseases of the circulatory system; M81.0 Age-related osteoporosis without current pathological fracture; M15.9 Polyosteoarthritis, unspecified
CPT/HCPCS: 36415; 51700; 71045; 80053; 81001; 85025; 85610; 85730; 86850; 86900; 93005; 96374; 96375; 96376; 97139; 99284; C1713; J0171; J0690; J1100; J1650; J1885; J2001; J2370; J2405; J2795; J3370; J7030; J7121